=== PATIENT | male | born 1965 | race Caucasian/White ===

== ENCOUNTER 2017-01-08 22:55 | Emergency (ER) | payer SELFPAY ==
--- NOTE | 2017-01-09 01:11 | ED NURSING NOTES ---
Clinical Report - Nurses [place] [facility] [address] [place] [address] 01/08/2017 22:57 Patient: NAZIA MACARIO DISPOSITION / DISCHARGE Departure time: 00:53. The patient left the Emergency Department before triage. ( Went to waiting room to bring patient back, unable to locate patient, checked in restrooms hallways and waiting area - patient not found). --01:10 Garo Conte R.N. Locked/Released at 01/09/2017 1:41 by Garo Conte R.N.
--- NOTE | 2017-01-09 01:11 | ED NURSING NOTES ---
Clinical Report - Nurses [place] [address] [place] [address] 01/08/2017 22:57 Patient: NAZIA MACARIO DISPOSITION / DISCHARGE Departure time: 00:53. The patient left the Emergency Department before triage. ( Went to waiting room to bring patient back, unable to locate patient, checked in restrooms hallways and waiting area - patient not found). --01:10 Garo Conte R.N. Locked/Released at 01/09/2017 1:41 by Garo Conte R.N.
--- NOTE | 2017-01-09 01:41 | ED MAR SUMMARY ---
..... Medication Administration Record [facility] [address] [place] [id number] Patient: NAZIA MACARIO Visit ID: [id number] 51y, M Weight: (not available) Height/Length: (not available) BMI: (not available) ALLERGIES:
--- NOTE | 2017-01-09 01:41 | ED MAR SUMMARY ---
..... Medication Administration Record [facility] [address] [place] [id number] Patient: NAZIA MACARIO Visit ID: [id number] 51y, M Weight: (not available) Height/Length: (not available) BMI: (not available) ALLERGIES:
--- NOTE | 2017-01-09 01:42 | ED MED RECONCILIATION SUMMARY ---
Patient: NAZIA MACARIO Medication Reconciliation Report [facility] VisitID: [id number] [address] [place] [address] 51y, M Registration Date/Time: 01/08/2017 Weight: (not available) Height/Length: (not available) BMI: (not available) ALLERGIES: The patient's Home Medications are listed below: Not obtained. The source(s) of the original Home Medication information: Not obtained. The following Medications were given to the patient in the Emergency Department: None. The following Medications were prescribed to the patient: None.
--- NOTE | 2017-01-09 01:42 | ED MED RECONCILIATION SUMMARY ---
Patient: NAZIA MACARIO Medication Reconciliation Report [facility] VisitID: [id number] [address] [place] [address] 51y, M Registration Date/Time: 01/08/2017 Weight: (not available) Height/Length: (not available) BMI: (not available) ALLERGIES: The patient's Home Medications are listed below: Not obtained. The source(s) of the original Home Medication information: Not obtained. The following Medications were given to the patient in the Emergency Department: None. The following Medications were prescribed to the patient: None.
== END 2017-01-09 00:53 | disposition left against medical advice (07) ==
LOC: ED SRH 22:55
DX: Z53.21 Procedure and treatment not carried out due to patient leaving prior to being seen by health care provider (principal)